=== PATIENT | female | born 2000 | race Caucasian/White ===

== ENCOUNTER 2020-02-20 14:02 | Emergency (ER) | payer SELFPAY ==
[2020-02-20 14:16] VITALS: BP 144/65; PULSE 87; RESP 20; TEMP 37; O2SAT 100
--- NOTE | 2020-02-20 14:35 | ED.GENADULT ---
HPI - General Adult General Chief complaint: Nausea/Vomiting/Diarrhea Stated complaint: nausea Time Seen by Provider: 02/20/20 14:35 Source: patient and RN notes reviewed Mode of arrival: ambulatory Limitations: no limitations History of Present Illness HPI narrative: 19-year-old female presents with complaints of nausea this morning at 07:00 with one episode of emesis occurred approximately 7 hours ago. Lesley says she ate spicy shshi last night and believes that caused her emesis (earlier without blood) and nausea. Intermittent nausea (none at this time) and no further vomiting, diarrhea, or abdominal pain. No treatment. No abdominal pain or cramping. Exacerbating factors consist of eating and drinking. LBM today, normal without blood. Denies fever or chills. Denies headache, dizziness, back pain, dysuria, and blood in stool. Tolerating po intake well. Remains active. The patient reports she have not been diagnosed with COVID-19. The patient reports she is not waiting for the results of a COVID-19 lab test. The patient reports she do not have fever, chills, weakness, fatigue, myalgia, or facial swelling. The patient reports she do not have a new or worsening cough or shortness of breath. Denies chest pain. The patient reports she do not have any rhinorrhea, congestion, or sore throat. Denies recent traveling. Denies concerns for COVID-19 or exposures been home with limited outdoor exposure except for essential household needs, work, and return home. At this time, patient is not suspected of having COVID-19. Some parts of this dictation were generated by voice recognition software and may contain typographical and/or grammatical inaccuracies. Related Data Allergies Allergy/AdvReac Type Severity Reaction Status Date / Time No Known Allergies Allergy Unverified 02/20/20 14:18 Review of Systems Review of Systems: Narrative: CONSTITUTIONAL: Denies fever, chills, sweats. EYES: Denies visual changes, redness, discharge. ENT: Denies rhinorrhea, congestion, sore throat, otalgia. CARDIOVASCULAR: Denies chest pain, palpitations, edema. RESPIRATORY: Denies dyspnea, wheezing, cough. GASTROINTESTINAL: Denies abdominal pain, diarrhea, decrease appetite, Complains of vomiting, nausea. GENITOURINARY: Denies dysuria, hematuria, abnormal discharge. SKIN: Denies rash or itching. MUSCULOSKELETAL: Denies acute back pain, joint pain, or myalgia. NEUROLOGIC: Denies numbness or focal weakness. PSYCHIATRIC: Denies anxiety or depression. All systems reviewed & are unremarkable except as noted in HPI and below. COUNT INCLUDES THE [facility] Past Medical History Medical History (Updated 02/21/20 @ 00:00 by Laureen Thomas) Vasovagal episode Surgical History Surgical History (Updated 02/20/20 @ 19:36 by MEGHANN Tamayo) No significant past surgical history Family History Family History (Updated 02/20/20 @ 19:37 by MEGHANN Tamayo) Mother Endometriosis Diabetes mellitus Father Acute myocardial infarction Social History Social History (Updated 02/20/20 @ 19:38 by MEGHANN Tamayo) Smoking status: Never smoker Tobacco type: cigarettes Second hand tobacco smoke exposure: No Alcohol intake: current Substance use: never Gender identity (if verbalized by the patient): Female Comments At time of signature, I have reviewed and agree with nursing past medical, surgical, social, and family history. Please see nursing chart for further information. There is no relevant family history pertinent to the presenting complaint. Exam Narrative: Exam Narrative: GENERAL: This is a well-nourished, well-developed patient, in no apparent distress. Talks in full sentences without deficits and ambulates with steady gait without dyspnea. HEAD: normocephalic, atraumatic. EYES: PERRL. Sclera clear/white. Vision is grossly intact. THROAT: Mucous membranes moist, posterior pharynx clear. NECK: Neck supple, non-tender without l
== END 2020-02-20 14:46 | disposition home or self-care (01) ==
PROVIDERS: Emergency Provider Nurse Practitioner Family
DX: K52.9 Noninfective gastroenteritis and colitis, unspecified (principal)
CPT/HCPCS: 99213; G0463

== ENCOUNTER 2020-02-22 06:52 | Outpatient (NON) | payer OTHER, SELFPAY ==
[2020-02-22 22:31] LABS: SARS-CoV-2 RNA PCR Negative
== END 2020-02-22 06:53 ==
PROVIDERS: PCP Internal Medicine; Visit Provider Nurse Practitioner Family
DX: Z20.828 Contact with and (suspected) exposure to other viral communicable diseases (principal)
CPT/HCPCS: 87635; C9803; U0003

== ENCOUNTER 2020-04-20 15:19 | Emergency (ER) | payer MEDICAID, SELFPAY ==
[2020-04-20 15:28] VITALS: BP 129/85; PULSE 102; RESP 16; TEMP 36.7; O2SAT 100
--- NOTE | 2020-04-20 15:42 | ED.GENADULT ---
HPI - General Adult General Chief complaint: Wound/Laceration Stated complaint: bug bite Time Seen by Provider: 04/20/20 15:28 Source: patient and family Mode of arrival: ambulatory Limitations: no limitations History of Present Illness HPI narrative: Patient is a 20-year-old female who presents to emergency department for evaluation of wound to the dorsal surface right breast that is been present for the last couple of days patient notes mild aching pain with redness and swelling has been able to manually squeeze out some pus patient denies other complaints has not been seen for this Related Data Allergies Allergy/AdvReac Type Severity Reaction Status Date / Time No Known Allergies Allergy Verified 04/20/20 15:27 Review of Systems Review of Systems: All systems reviewed & are unremarkable except as noted in HPI and below PMFSH Past Medical History Medical History Vasovagal episode Surgical History Surgical History No significant past surgical history Family History Family History (Updated 02/20/20 @ 19:37 by MEGHANN Tamayo) Mother Endometriosis Diabetes mellitus Father Acute myocardial infarction Social History Social History Smoking status: Never smoker Tobacco type: cigarettes Second hand tobacco smoke exposure: No Alcohol intake: current Substance use: never Gender identity (if verbalized by the patient): Female Exam Narrative: Exam Narrative: GENERAL: Well-appearing, well-nourished, and in no acute distress. HEAD: Normocephalic, atraumatic. EYES: PERRLA and EOMI. EXTREMITIES: Normal range of motion. No edema. SKIN: Warm, dry, no rash. Patient with red tender swollen lesion to the dorsal surface of the distal right forearm measuring 1 cm in diameter with open center no lymphangitic streak NEURO: No focal deficits. Alert and oriented x3. PSYCH: Normal mood and affect. Course Course Emergency Course: Patient in the room in no distress aware of case findings treatment plan and diagnosis agreeing to follow-up as directed Vital Signs Vital signs: Vital Signs Temperature 98.1 F 04/20/20 15:28 Pulse Rate 102 H 04/20/20 15:28 Respiratory Rate 16 04/20/20 15:28 Blood Pressure 129/85 04/20/20 15:28 Pulse Oximetry 100 04/20/20 15:28 Temperature 98.1 F 04/20/20 15:28 Pulse Rate 102 H 04/20/20 15:28 Respiratory Rate 16 04/20/20 15:28 Blood Pressure 129/85 04/20/20 15:28 Pulse Oximetry 100 04/20/20 15:28 Procedures Other Procedure Procedure 1: Other Procedure: Wound was prepped with soap scrub with pus manually expressed antibiotic ointment applied post procedure Medical Decision Making MDM Narrative Medical decision making narrative: Patient with abscess which was manually drained felt appropriate for outpatient reevaluation Vital Signs Vital Signs: Vital Signs Temperature 98.1 F 04/20/20 15:28 Pulse Rate 102 H 04/20/20 15:28 Respiratory Rate 16 04/20/20 15:28 Blood Pressure 129/85 04/20/20 15:28 Pulse Oximetry 100 04/20/20 15:28 Temperature 98.1 F 04/20/20 15:28 Pulse Rate 102 H 04/20/20 15:28 Respiratory Rate 16 04/20/20 15:28 Blood Pressure 129/85 04/20/20 15:28 Pulse Oximetry 100 04/20/20 15:28 Discharge Plan Discharge Clinical Impression: Abscess Patient Disposition: Home, Self-Care Condition: Stable Instructions: Antibiotic Form, Abscess (ED) Additional Instructions: Follow up with primary care in the next 7 days for reevaluation return if symptoms worsen or concerns, any increase in redness swelling pain or fever over 100.5 Clean wound with mild soapy water. Apply antibiotic ointment and clean dressing at least three times daily Prescriptions: New mupirocin 2 % ointment 1 applic TOPICAL TID
[2020-04-20 17:35] VITALS: BP 129/85; PULSE 98; RESP 18; O2SAT 100
== END 2020-04-20 17:38 | disposition home or self-care (01) ==
LOC: ANHED 15:49
PROVIDERS: Emergency Provider Emergency Medicine; PCP Internal Medicine
DX: N61.1 Abscess of the breast and nipple (principal)
CPT/HCPCS: 99283

== ENCOUNTER 2020-11-25 20:00 | Emergency (ER) | payer OTHER, SELFPAY ==
[2020-11-25] VITALS (7 sets, daily range): BP systolic 144–146; BP diastolic 83–84; PULSE 80–105; RESP 18–20; TEMP 36.2–36.3; O2SAT 97–99
--- NOTE | ~2020-11-25 | CT_ITS ---
EXAMINATION: CT abdomen pelvis w con DATE: 11/25/2020 21:58 INDICATION: Left-sided abdominal pain TECHNIQUE: Computed tomography (CT) of the abdomen and pelvis was performed with 100 cc Omnipaque 350 intravenous contrast. Automated exposure control and iterative reconstruction technique were employe d. Exam dose: 1387.18 mGy-cm total exam DLP. COMPARISON: None. FINDINGS: Lung bases are clear. Normal heart size. No pericardial or pleural effusion. The liver, gallbladder, bile ducts, spleen, pancreas, pancreatic duct and adrenal glands are unremark able. No renal mass lesion. No ureteral calculus or hydroureteronephrosis. The urinary bladder is unr emarkable. Normal caliber of the abdominal aorta. There are shotty nonenlarged periaortic and aortocaval lymph nodes. There are shotty mesenteric lymph nodes and right lower quadrant lymph nodes. Findings may represent mesenteric adenitis. Normal appendix. No bowel obstruction, bowel wall thickening, pneumatosis or intraperitoneal free air . There is a collapsed peripherally enhancing approximately 1.4 cm right ovarian cyst with moderate rig ht adnexal free fluid. Left ovary is unremarkable. Uterus is unremarkable. Included skeletal structures are unremarkable. IMPRESSION: Probable ruptured right ovarian cyst with moderate free fluid in the right adnexal area primarily Normal appendix Reviewed, dictated and finalized at [facility] Reviewed, dictated and finalized at [facility]. IMPRESSION: Probable ruptured right ovarian cyst with moderate free fluid in t he right adnexal area primarily Normal appendix
--- NOTE | 2020-11-25 20:24 | ED.GENADULT ---
HPI - General Adult General Chief complaint: Abdominal Pain Stated complaint: really bad ovary pain Time Seen by Provider: 11/25/20 20:08 Source: patient and family Mode of arrival: ambulatory Limitations: no limitations History of Present Illness HPI narrative: Patient presents for evaluation of right lower quadrant pain intermittently over the last 3 days. She indicates she has had this pain in the past, multiple times for last few years. She was seen at [facility] for this in the past. She had a pelvic exam and the provider that evaluated her told her that he thought it was an ovarian cyst. However she did not have any imaging performed. She states pain is stabbing, rated 6/10 in severity, without radiation. No fever or chills. She had some nausea and vomiting this morning. She denies any urinary symptoms, current vaginal bleeding/discharge. No hx of abdominal surgeries. Her mother states that she had a hysterectomy for endometriosis in the past. She took some ibuprofen earlier today which seemed to help her pain at that time. She denies any ETOH use and illicit drugs. No change in bowel pattern. She reports some constipation but last bowel movement was earlier today. She states she has a hx of irregular menstruation, historically fluctuating between heavy bleeding and spotting. She states LMP ended two weeks ago and states she had experienced bleeding for three months prior to that time. Related Data Allergies Allergy/AdvReac Type Severity Reaction Status Date / Time No Known Allergies Allergy Verified 04/20/20 15:27 Review of Systems Review of Systems: Narrative: CONSTITUTIONAL: Denies fever, chills, or sweats. EYES: Denies visual changes, redness, or discharge. ENT: Denies rhinorrhea, congestion, sore throat, or otalgia. CARDIOVASCULAR: Denies chest pain, palpitations, or edema. RESPIRATORY: Denies cough or dyspnea. GASTROINTESTINAL: Reports abdominal pain. Reports nausea earlier today with one episode of vomiting. Denies diarrhea and change in bowel pattern. GENITOURINARY: Denies dysuria or hematuria. SKIN: Denies rash or itching. MUSCULOSKELETAL: Denies back pain, joint pain, or myalgia. NEUROLOGIC: Denies headache, numbness, dizziness, or weakness. PSYCHIATRIC: Denies anxiety or depression. [facility] Past Medical History Medical History (Updated 11/25/20 @ 22:54 by Dutch Fraga, [facility], ) Vasovagal episode Surgical History Surgical History No significant past surgical history Family History Family History Mother Endometriosis Diabetes mellitus Father Acute myocardial infarction Social History Social History Smoking status: Never smoker Tobacco type: cigarettes Second hand tobacco smoke exposure: No Alcohol intake: current Substance use: never Gender identity (if verbalized by the patient): Female Exam Narrative: Exam Narrative: GENERAL: Well-appearing, well-nourished, and in no acute distress. HEAD: Normocephalic, atraumatic. EYES: PERRLA and EOMI. ENT: Nares clear, no rhinorrhea or epistaxis. Mucous membranes moist. Oropharynx without tonsillar hypertrophy exudate or other lesions. Bilateral TMs pearly [place] nonbulging NECK: Supple. No adenopathy or masses. No carotid bruits or JVD CHEST: Clear to auscultation. No respiratory distress. No wheezes rales or rhonchi HEART: Regular rate and rhythm. No murmur heard. Normal peripheral pulses. ABDOMEN: Soft, tender in RLQ without rebound or guarding. Abdomen nondistended, normal active bowel sounds. EXTREMITIES: Normal range of motion. No edema. SKIN: Warm, dry, no rash. NEURO: No focal deficits. Alert and oriented x3. PSYCH: Normal mood and affect. Course Course Emergency Course: 20-year-old female who presents for evaluation of intermi
[2020-11-25 20:54] LABS: Basophils Percent Auto 0.4 % (0.2-1.2); Eosinophils Absolute Auto 0.1 K/mm3 (0-0.3); Eosinophils Percent Auto 1.3 % (0-4.4); Hemoglobin 12.8 g/dL (12.0-15.0); Immature Granulocyte Absolute 0.03 K/mm3 (0.00-0.031); Immature Granulocyte Percent A 0.3 % (0-0.5); Lymphocytes Absolute Auto 3.09 K/mm3 (0.9-3.2); Lymphocytes Percent Auto 32.7 % (18.3-44.2); Mean Corpuscular HGB Conc 31.2 g/dl (32-36); Mean Corpuscular Hemoglobin 26.4 pg (26-34); Mean Corpuscular Volume 84.5 fl (80-100); Mean Platelet Volume 10.5 fl (7.4-10.4); Monocytes Absolute Auto 0.6 K/mm3 (0.1-0.6); Monocytes Percent Auto 6.1 % (2.6-8.5); Neutrophils Absolute Auto 5.6 K/mm3 (1.3-6.7); Neutrophils Percent Auto 59.2 % (45.5-73.1); Platelet Count Result 257 k/mm3 (150-375); Red Blood Count 4.85 M/mm3 (4.2-5.4); Red Cell Distribution Width 13.7 % (11.5-14.5); White Blood Count 9.5 K/mm3 (4.5-10.0)
[2020-11-25 20:57] LABS: Alanine Aminotransferase 18 U/L (4-35); Albumin Level 4.2 g/dL (3.5-5.1); Alkaline Phosphatase 57 U/L (38-126); Anion Gap 5 mmol/L (8-16); Aspartate Amino Transferase 23 U/L (14-36); Bilirubin,Total < 0.1 mg/dL (0.2-1.3); Blood Urea Nitrogen 13 mg/dL (7-17); Calcium 9.4 mg/dL (8.4-10.2); Carbon Dioxide 28 mmol/L (22-30); Chloride 107 mmol/L (98-107); Estimated CRCL calculation 112 ml/min; Estimated Glomerular Filt Rate > 60; Glucose 103 mg/dL (65-105); Lipase 128 U/L (23-300); Sodium 140 mmol/L (137-145)
[2020-11-25 20:59] LABS: Add Urine Microscopic? YES; Appearance Urine Cloudy (Clear); Bacteria Urine Trace /hpf; Bilirubin Urine Negative (Negative); Blood Urine Negative (Negative); Color Urine Yellow (Yellow); Glucose Urine UA Negative (Negative); Ketones Urine Negative (Negative); Leukocyte Esterase Ur Negative LEU/UL (Negative); Mucus Urine Rare /lpf; Nitrate Urine Negative (Negative); Protein Urine Negative (Negative); RBC Urine 0-2 /hpf (0-2); Specific Grav Ur 1.019 (1.001-1.035); Squamous Epithelial Cell Urine Many /hpf (Few); Urobilinogen Urine Negative mg/dL (<2.0); WBC Urine 0-3 /hpf
[2020-11-25] MEDS: ONDANSETRON INJ 4 MG/2 ML VIAL IV PUSH (21:03)
[2020-11-25] MEDS: SODIUM CHLORIDE 0.9% IV 1,000 ML 999 ML IV CONT (21:03)
[2020-11-25] MEDS: HYDROcodone/acetaminophen (*CRX) 5-325 MG TABLET 1 TAB PO (21:04)
== END 2020-11-26 01:33 | disposition home or self-care (01) ==
PROVIDERS: Emergency Provider Nurse Practitioner; PCP Internal Medicine
DX: N83.201 Unspecified ovarian cyst, right side (principal)
CPT/HCPCS: 36415; 74177; 80053; 81001; 81025; 83690; 85025; 96374; 99284; A9270; J2405; J7030; Q9967

== ENCOUNTER 2021-02-01 16:32 | Emergency (ER) | payer OTHER, SELFPAY ==
--- NOTE | ~2021-02-01 | XR_ITS ---
XR ankle LT min 3V 02/01/2021 16:53 INDICATION: Left ankle pain PROCEDURE: 4 views left ankle COMPARISON: No prior studies for comparison. FINDINGS: Fracture, dislocation or subluxation is not identified. There is mild lateral soft tissue s welling. No foreign bodies are identified. IMPRESSION: 1: NO ACUTE BONE OR JOINT ABNORMALITY IDENTIFIED. Reviewed, dictated and finalized at [facility].
[2021-02-01 16:34] VITALS: BP 163/63; PULSE 103; RESP 16; TEMP 37.7; O2SAT 99
--- NOTE | 2021-02-01 17:06 | ED.GENADULT ---
HPI - General Adult General Chief complaint: Extremity Injury, Lower Stated complaint: left ankle injury Time Seen by Provider: 02/01/21 16:37 Source: patient, family and RN notes reviewed Mode of arrival: ambulatory Limitations: no limitations History of Present Illness HPI narrative: Patient is a 20-year-old female who presents for left ankle injury patient reportedly stepped in a hole yesterday and has since had pain throughout the left ankle joint worse with weightbearing and activity patient has not taken anything for pain patient presents per private vehicle in no distress Related Data Allergies Allergy/AdvReac Type Severity Reaction Status Date / Time No Known Allergies Allergy Verified 04/20/20 15:27 Review of Systems Review of Systems: All systems reviewed & are unremarkable except as noted in HPI and below PMFSH Past Medical History Medical History (Updated 02/01/21 @ 17:15 by Jarek Chu PA-C) Vasovagal episode Surgical History Surgical History No significant past surgical history Family History Family History Mother Endometriosis Diabetes mellitus Father Acute myocardial infarction Social History Social History Smoking status: Never smoker Tobacco type: cigarettes Second hand tobacco smoke exposure: No Alcohol intake: current Substance use: never Gender identity (if verbalized by the patient): Female Exam Narrative: Exam Narrative: GENERAL: Well-appearing, well-nourished, and in no acute distress. HEAD: Normocephalic, atraumatic. EYES: PERRLA and EOMI. ENT: Nares clear, no rhinorrhea or epistaxis. Mucous membranes moist. EXTREMITIES: Normal range of motion. No edema. Patient with tenderness to palpation of the ankle joint no deformities noted SKIN: Warm, dry, no rash. NEURO: No focal deficits. Alert and oriented x3. Cranial nerves II through XII grossly intact. PSYCH: Normal mood and affect. Course Course Emergency Course: Patient in the room no distress aware of case findings treatment plan and diagnosis agreeing to follow-up as instructed Vital Signs Vital signs: Vital Signs Temperature 99.8 F H 02/01/21 16:34 Pulse Rate 103 H 02/01/21 16:34 Respiratory Rate 16 02/01/21 16:34 Blood Pressure 163/63 H 02/01/21 16:34 Pulse Oximetry 99 02/01/21 16:34 Temperature 99.8 F H 02/01/21 16:34 Pulse Rate 103 H 02/01/21 16:34 Respiratory Rate 16 02/01/21 16:34 Blood Pressure 163/63 H 02/01/21 16:34 Pulse Oximetry 99 02/01/21 16:34 Medical Decision Making MDM Narrative Medical decision making narrative: Patients injury or pain is consistent with musculoskeletal etiology. No signs of neurological or vascular compromise on exam. Compartments and tisues are soft without signs of compartment syndrome. Pain is felt appropriate for further evaluation on an outpatient basis. Vital Signs Vital Signs: Vital Signs Temperature 99.8 F H 02/01/21 16:34 Pulse Rate 103 H 02/01/21 16:34 Respiratory Rate 16 02/01/21 16:34 Blood Pressure 163/63 H 02/01/21 16:34 Pulse Oximetry 99 02/01/21 16:34 Temperature 99.8 F H 02/01/21 16:34 Pulse Rate 103 H 02/01/21 16:34 Respiratory Rate 16 02/01/21 16:34 Blood Pressure 163/63 H 02/01/21 16:34 Pulse Oximetry 99 02/01/21 16:34 Imaging Data Radiologist's impression: ITS Impressions Ankle X-Ray 02/01/21 16:55 IMPRESSION: 1: NO ACUTE BONE OR JOINT ABNORMALITY IDENTIFIED. Discharge Plan Discharge Clinical Impression: Ankle sprain and strain Patient Disposition: Home, Self-Care Condition: Stable Instructions: Antibiotic Form, Ankle Strain (ED) Additional Instructions: Wear Osmin wrap with limited weight on the affected leg until able to bear weight without pain. Ice and elevate
[2021-02-01 17:16] VITALS: BP 121/70; PULSE 91; RESP 18; TEMP 36.7; O2SAT 99
== END 2021-02-01 17:27 | disposition home or self-care (01) ==
PROVIDERS: Emergency Provider Emergency Medicine
DX: S93.402A Sprain of unspecified ligament of left ankle, initial encounter (principal); X58.XXXA Exposure to other specified factors, initial encounter
CPT/HCPCS: 73610; 99283

== ENCOUNTER 2021-08-01 15:04 | Emergency (ER) | payer OTHER, SELFPAY ==
[2021-08-01 15:12] VITALS: BP 146/66; PULSE 105; RESP 20; TEMP 37.2; O2SAT 100
--- NOTE | 2021-08-01 16:06 | ED.URI ---
HPI - URI/Sore Throat General Chief Complaint: Upper Respiratory Infection Stated Complaint: Sore Throat Time Seen by Provider: 08/01/21 15:40 Source: patient and RN notes reviewed History of Present Illness HPI Narrative: Patient is a 21-year-old female who presents the urgent care with complaints of a sore throat since Friday. Patient reports of a headache for the last 4 days. Denies of any known exposure to Covid. Patient has had a Covid vaccine. Denies any fever, chills, nausea, vomiting. Patient is 4 months . Has been taking Tylenol for her symptoms. No other acute complaints. No acute distress noted. Patient read the plan of care. Some parts of this dictation were generated by voice recognition software and may contain typographical and/or grammatical inaccuracies. Related Data Allergies Allergy/AdvReac Type Severity Reaction Status Date / Time No Known Allergies Allergy Verified 04/20/20 15:27 Review of Systems Review of Systems: CONSTITUTIONAL: Denies fever, chills, or sweats. EYES: Denies visual changes, redness, or discharge. ENT: Denies rhinorrhea, congestion, otalgia. Reports of sore throat CARDIOVASCULAR: Denies chest pain, palpitations, or edema. RESPIRATORY: Denies cough or dyspnea. GASTROINTESTINAL: Denies abdominal pain, nausea, vomiting, or diarrhea. GENITOURINARY: Denies dysuria or hematuria. SKIN: Denies rash or itching. MUSCULOSKELETAL: Denies back pain, joint pain, or myalgia. NEUROLOGIC: reports of headache All other systems reviewed are negative, except as documented in HPI. [facility] Past Medical History Medical History (Updated 08/01/21 @ 16:09 by MEGHANN Heredia) Vasovagal episode Surgical History Surgical History No significant past surgical history Family History Family History Mother Endometriosis Diabetes mellitus Father Acute myocardial infarction Social History Social History Smoking status: Never smoker Tobacco type: cigarettes Second hand tobacco smoke exposure: No Alcohol intake: current Substance use: never Gender identity (if verbalized by the patient): Female Comments At the time of my signature, I reviewed and agree with the nursing past medical, surgical, social, and family history. There is no relevant family history pertinent to the patient complaint. Exam Narrative: GENERAL: This is a well-nourished, well-developed patient, in no apparent distress. HEAD: normocephalic, atraumatic. EYES: PERRL. Sclera clear/white. Vision is grossly intact. EARS: External ears normal, auditory canals clear and without drainage, TMs normal without perforation. Hearing grossly intact. NOSE: External nose normal with no obvious nasal discharge, nares without redness, no rhinorrhea. THROAT: Mucous membranes moist. Mild to moderate bilateral tonsillar edema with bilateral exudate/erythema. Moderate postnasal drainage. NECK: Neck supple, non-tender bilateral submandibular lymphadenopathy CARDIOVASCULAR: Regular rate and rhythm without murmurs, gallops, or rubs. RESPIRATORY: Clear to auscultation. Breath sounds equal bilaterally. No wheezes, rales, or rhonchi. SKIN: warm, intact with no suspicious lesions or rash, good texture and turgor. NEURO: awake, alert, and oriented to person, place and time. There were no obvious focal neurologic abnormalities. EXTREMITIES: No clubbing, cyanosis, or edema. Course Course Level of Care: Express Care Visit Vital Signs Vital signs: Vital Signs Temperature 98.9 F 08/01/21 15:12 Pulse Rate 105 H 08/01/21 15:12 Respiratory Rate 08/01/21 15:12 Blood Pressure 146/66 H 08/01/21 15:12 Pulse Oximetry 100 08/01/21 15:12 Temperature 98.9 F 08/01/21 15:12 Pulse Rate 105 H 08/01/21 15:12 Respiratory Rate 08/01/21 15:12
== END 2021-08-01 16:20 | disposition home or self-care (01) ==
PROVIDERS: Emergency Provider Nurse Practitioner Family
DX: O99.519 Diseases of the respiratory system complicating pregnancy, unspecified trimester (principal); Z3A.00 Weeks of gestation of pregnancy not specified; J02.0 Streptococcal pharyngitis
CPT/HCPCS: 87880; 99213; G0463

== ENCOUNTER 2023-06-26 12:04 | Emergency (ER) | payer OTHER, SELFPAY ==
[2023-06-26 12:15] VITALS: BP 135/75; PULSE 94; RESP 20; TEMP 36.8; O2SAT 98
--- NOTE | 2023-06-26 12:37 | ED.URI ---
HPI - URI/Sore Throat General Chief Complaint: Upper Respiratory Infection Stated Complaint: Shortness of Breath Time Seen by Provider: 06/26/23 12:35 Source: patient, RN notes reviewed and old records reviewed Mode of arrival: ambulatory Limitations: no limitations History of Present Illness HPI Narrative: 23 year old female presents to [facility] care with complaints of testing positive for COVID on Friday and having cough for the past 5 days which is progressively getting worse. Patient reports that she has burning sensation in her chest and she feels short of breath when she lays supine.Patient reports no fevers or any wheezing. MD elicited complaint: cough Pertinent past history: other (positive COVID 3 days ago, previously treated for acute pharyngitis 06/14 with Amoxicillin) Onset (ago): day(s) (5) Consistency: progressively worsening Pain scale (0-10): 4 Able to tolerate fluids by mouth: Yes Treatments prior to arrival: acetaminophen Related Data Allergies Allergy/AdvReac Type Severity Reaction Status Date / Time metronidazole [From Flagyl] AdvReac Dizziness Verified 06/26/23 12:22 Review of Systems Review of Systems: CONSTITUTIONAL: Denies malaise, chills, sweats, or fever. EYES: Denies visual changes, redness, or discharge. ENT: Reports rhinorrhea, congestion, sinus pain,no otalgia and sore throat. CARDIOVASCULAR: Denies chest pain, palpitations, or edema. RESPIRATORY: Reports cough.?Report dyspnea when she lays down GASTROINTESTINAL: Denies abdominal pain, nausea, vomiting, diarrhea SKIN: Denies rash or itching. MUSCULOSKELETAL: Denies myalgia. NEUROLOGIC: reports headache. All systems reviewed & are unremarkable except as noted in HPI and below PMFSH Past Medical History Medical History Vasovagal episode Surgical History Surgical History No significant past surgical history Family History Family History Mother Endometriosis Diabetes mellitus Father Acute myocardial infarction Social History Social History Smoking status: Current every day smoker Tobacco type: e-cigarettes/vaping Second hand tobacco smoke exposure: No Alcohol intake: current Substance use: never Living arrangements: with family Occupation/Education: occupation Gender identity (if verbalized by the patient): Female Comments At time of signature, agree with nursing past medical, surgical, social and family history. There is no relevant family history pertinent to the presenting complaint Exam Narrative: GENERAL: Well-appearing, well-nourished, and in no acute distress. HEAD: Normocephalic EYES: PERRLA, conjunctivae clear ENT: Nares clear, turbinates edematous and erythematous, clear discharge. Mucous membranes moist. TM pearly [place] with dull light reflex bilaterally; no tragal tenderness. Oropharynx erythematous without lesions. Tonsils not enlarged and without exudate, no drooling, no hoarseness, no trismus, uvula midline. NECK: Supple. No lymphadenopathy CHEST: Clear to auscultation, breath sounds equal. No wheezing, rhonchi, rales, or stridor. No respiratory distress, speaks in full sentences.cough,no tachypnea [id number]% on room air HEART: Regular rate and rhythm. No murmur heard. SKIN: Warm, dry, no rash. NEURO: Alert and oriented x3. PSYCH: Normal mood and affect Course Course Emergency Course: Patient is aware of diagnosis, understands and agrees to treatment plan.? Anticipatory guidance given.? Patient agrees to follow-up as directed and is aware of reasons to seek care at the emergency department. Portions of this record may have been created with voice recognition software Level of Care: Express Care Visit Vital Signs Vital signs: Vital Sig
== END 2023-06-26 12:54 | disposition home or self-care (01) ==
PROVIDERS: Emergency Provider Registered Nurse; PCP Family Medicine
DX: R05.1 Acute cough (principal); F17.290 Nicotine dependence, other tobacco product, uncomplicated
CPT/HCPCS: 99213; G0463